=== PATIENT | male | born 1955 | race Caucasian/White ===

== ENCOUNTER → 2021-04-20 13:25 | Outpatient (CLI) | payer MEDICARE, OTHER, SELFPAY ==
[2021-04-20 16:13] LABS: COVID19 -Nasal RAPID Negative (Negative)
== END ==
PROVIDERS: Visit Provider Physician Assistant
DX: Z01.812 Encounter for preprocedural laboratory examination (principal); Z20.822 Contact with and (suspected) exposure to COVID-19
CPT/HCPCS: 87635; C9803

== ENCOUNTER → 2021-04-21 10:30 | Outpatient (CLI) | payer MEDICARE, OTHER, SELFPAY ==
--- NOTE | 2021-04-21 11:51 | PM.TREADMILL ---
Cardiac Stress Test Report Referral & Results Date Patient Seen: 04/21/21 Time Patient Seen: 11:51 Requesting provider: Domenic Jain Indication: Atherosclerotic heart disease Rest ECG: Sinus rhythm Procedure Note: Standard Jesus protocol; 10:26, 11.1 METS Very good exercise capacity, NIK -35% Normal hemodynamic response to exercise No chest pain or anginal symptoms Less than [address] downsloping in II, III, aVF No ectopy Impression: Normal exercise stress test Please note: Actual ECG tracings can be found in the PACS system.
--- NOTE | 2021-04-22 18:45 | DI.NM.S_ITS ---
DATE OF SERVICE: 04/21/2021 PROCEDURE: Exercise perfusion study. INDICATION: Occluded mid LAD with recent intervention of RCA and ramus, diabetes mellitus, hypertension and hyperlipidemia. RADIOPHARMACEUTICAL: 25.9 millicurie technetium-99m Myoview IV was injected at stress and 25.0 millicurie technetium-99m Myoview IV was injected at rest. CARDIAC STRESS: The patient underwent exercise perfusion study under the supervision of an attending staff. He walked on Jesus protocol for 10 minutes and 26 seconds, achieved 93 percent of target heart rate with normal blood pressure response, NIK -35 percent and 12.8 METs of workload. No anginal symptoms. The patient felt fatigue and some dyspnea. Baseline EKG revealed sinus rhythm. During stress, there were some nonspecific ST-T changes without any convincing ischemic changes. There were no significant arrhythmias. RAW DATA: There is gut shadow seen near the inferior border of the heart. The patient's weight is 215 pounds. GATED STUDY: Resting LV ejection fraction 69 and stress LV ejection 77 percent without any obvious wall motion abnormalities. Resting end-diastolic volume 106 mL. TID ratio 0.61, which is within normal limits. Lung/heart ratio 0.33, which is within normal limits. MYOCARDIAL PERFUSION SCAN: Stress supine and resting supine, as well as stress prone images were compared to each other. Resting supine images revealed moderate-size, moderate to severely decreased perfusion of inferior wall and inferoapex. During stress supine, there was a small size, mildly decreased perfusion of basal inferior wall and inferoapex. During stress prone, there was complete resolution of inferior wall defect. There was minimally decreased perfusion of inferoapex. No reversible ischemia. CONCLUSION: There is no reversible ischemia. Significant improvement of inferior wall defect during stress prone images. There is a minimally fixed inferopical defect, which could be due to persistent tissue attenuation artifact, however one cannot rule out small inferoapical infarction. Excellent exercise tolerance. The patient walked on Jesus protocol for 10 minutes and 26 seconds. Functional aerobic impairment -35 percent. Preserved left ventricular function. No obvious ischemic EKG changes or significant arrhythmias. Overall, this is a low-risk myocardial perfusion scan. Rip Chin - Laverne/elsa doc#: [id number]/job#: [id number] dd: 04/22/2021 17:16:00 dt: 04/22/2021 18:30:00 DICTATING MD/COPIES TO: Viral Braun MD COPIES MNE: SHAWN;
--- OUTSIDE RECORDS SUMMARY | 2021-06-04 08:21 | XMS_ITS | Referral Summary ---
:1955 Author Organization [facility] Address [address] [place] [address] Care Team Providers Name Role Phone Lori Primary Care Provider Reason for Referral Consultation (Routine) Status Reason Specialty Diagnoses / Referred By Referred To Procedures Contact Contact Closed Cardiac Rehabilitation Diagnoses ASHD (arteriosclerotic heart disease) [facility] [address] [place] [address] [phone] [place], [place] Phone: [phone] Electronically signed by Domenic Jain MD at Reason for Visit Reason Comments Heart Problem Coronary Artery Disease Encounter Details Date Type Department Care Team Description 12/03/2020 Telemedicine [facility] ASHD (hiro riosclerotic heart disease) (Primary Dx); [facility] Cardiology MD Simona History of heart artery stent; [address] Hyperlipidemia, unspecified hyperlipidemia type; [address] [place] [address] [address] Type 2 diabetes mellitus with other spec ified complication, without long-term current use of insulin ([facility]); [address] [place], [place] [phone] Allergies Active Allergy Reactions Severity Noted Date Comments Penicillin G 11/18/2020 Unknown, since he was a kid documented as of this encounter (statuses as of 06/03/2021) Medications Medication Sig Dispensed Refills Start Date End Date Status insulin glargine Inject 10 0 Act bob (LANTUS) 100 Units under unit/mL injection the skin daily (vial) metFORMIN Take 1,000 mg 0 Active (GLUCOPHAGE) by mouth 2 1,000 mg tablet (two) times a day with meals aspirin 81 mg Take 1 tablet 30 tablet 0 11/20/2020 A ctive chewable tablet (81 mg total) 2 by mouth daily Jardiance 10 mg Take 1 tablet 0 11/24/2020 Active tablet by mouth daily Trulicity 0.75 Inject 0.75 mg 0 11/09/2020 Active mg/0.5 mL pen into the injector shoulder, thigh, or buttocks once a week clopidogreL Take 1 tablet 90 tablet 3 12/03/2020 Act bob (PLAVIX) 75 mg (75 mg total) 2 tablet by mouth daily telmisartan Take 40 mg by 0 Disc ontinued (MICARDIS) 40 mg mouth daily 1 ( Stop Taking at tablet Discharge) carvediloL Take 1 tablet 60 tablet 0 11/19/2020 Expi red (COREG) 3.125 mg (3.125 mg 1 tablet total) by mouth 2 (two) times a day with meals clopidogreL Take 1 tablet 30 tablet 0 11/20/2020 Dis continued (PLAVIX) 75 mg (75 mg total) 1 ( Reorder) tablet by mouth daily documented as of this encounter (statuses as of 06/03/2021) Active Problems No known active problemsdocumented as of this encounter (statuses as of 06/03/2021) Social History Tobacco Use Types Packs/Day Years Used Date Former Smoker 1972 - 1982 Smokeless Tobacco: Never Used Sex Assigned at Date Recorded Male 03/02/2021 8:59 AM PDT Job Start Date Occupation Industry Not on file Not on file Not on file documented as of this encounter Last Filed Vital Signs Vital Sign Reading Time Taken Comments Blood Pressure 114/73 12/03/2020 10:28 AM PST Pulse 73 12/03/2020 10:28 AM PST Temperature - - Respiratory Rate - - Oxygen Saturation - - Inhaled Oxygen Concentration - - Weight 103 kg (226 lb) 12/03/2020 10:28 AM PST Height 185.4 cm (6' 1) 12/03/2020 10:28 AM PST Body Mass Index 29.82 12/03/2020 10:28 AM PST documented in this encounter Progress Notes Domenic Jain MD - 12/03/2020 10:40 AM PST Subjective Patient ID: Rip Chin is a 65 y.o. male that presents today for had concerns including Heart Problem and Coronary Artery Disease. HPI: 65 yo M h/o CAD here for F/U on his CAD. Patient is seen via two way zoom video. Since his hospitalization for NM last month, he has done well. Denies chest pain, dyspnea, heart racing sensations, lightheadedness, or syncope. He is back to his baseline and is walking his dog without any symptoms. He is working with his PCP on his diabetes. PROBLEM LIST: # CAD STEMI s/p emergent HUDSON to RCA on 11/18/2020. LVEF normal. # DM # Severe hypertriglyceridemia related to poorly controlled diabetes. # Former smoker: Social History Socioeconomic History ??? Marital status: Unknown Spouse name: Not on file ??? Number of children: Not on file ??? Years of education: Not on file ??? Highest education level: Not on file Occupational History ??? Not on file Social Needs ??? Financial resource strain: Not on file ??? Food insecurity Worry: Not on file Inability: Not on file ??? Transportation needs Medical: Not on file Non-medical: Not on file Tobacco Use ??? Smoking status: Former Smoker Start date: 1972 Quit date: 1982 Years since quittin.1 ??? Smokeless tobacco: Never Used Substance and Sexual Activity ??? Alcohol use: Not on file ??? Drug use: Not on file ??? Sexual activity: Not on file Lifestyle ??? Physical activity Days per week: Not on file Minutes per session: Not on file ??? Stress: Not on file Relationships ??? Social connections Talks on phone: Not on file Gets together: Not on file Attends denominational service: Not on file Active member of club or organization: Not on file Attends meetings of clubs or organizations: Not on file Relationship status: Not on file Other Topics Concern ??? Not on file Social History Narrative ??? Not on file Allergies Allergen Reactions ??? Penicillin G Unknown, since he was a kid Current Medication List Sig aspirin 81 mg chewable tablet Take 1 tablet (81 mg total) by mouth daily carvediloL (COREG) 3.125 mg tablet Take 1 tablet (3.125 mg total) by mouth 2 (two) times a day withmeals clopidogreL (PLAVIX) 75 mg tablet Take 1 tablet (75 mg total) by mouth daily insulin glargine (LANTUS) 100 unit/mL injection (vial) Inject 10 Units under the skin daily Jardiance 10 mg tablet Take 1 tablet by mouth daily metFORMIN (GLUCOPHAGE) 1,000 mg tablet Take 1,000 mg by mouth 2 (two) times a day with meals telmisartan (MICARDIS) 40 mg tablet Take 40 mg by mouth daily Trulicity 0.75 mg/0.5 mL pen injector Inject 0.75 mg into the shoulder, thigh, or buttocks once a week clopidogreL (PLAVIX) 75 mg tablet (Discontinued) Take 1 tablet (75 mg total) by mouth daily Review of Systems Constitutional: Positive for unexpected weight change. Negative for fatigue. Eyes: Negative for visual disturbance. Respiratory: Negative for chest tightness and shortness of breath. Cardiovascular: Negative for chest pain, palpitations and leg swelling. Gastrointestinal: Negative for blood in stool. Endocrine: Negative for polydipsia. Genitourinary: Negative for hematuria. Skin: Negative for rash. Neurological: Negative for dizziness, weakness and light-headedness. Hematological: Does not bruise/bleed easily. Psychiatric/Behavioral: The patient is not nervous/anxious. All other systems reviewed and are negative. Objective BP 114/73 (BP Location: Left arm, Patient Position: Sitting) Pulse 73 Ht 1.854 m Wt 103 kg BMI 29.82 kg/m?? Physical Exam: COPIED FROM LAST PHYSICAL EXAM DONE IN CLINIC AND UNCHANGED (BUT AUSCULTATION COULD NOT BE DONE TODAY) General appearance: No apparent distress, well-nourished, pleasant, cooperative HEET: Normocephalic atraumatic, no scleral icterus, tongue midline, mucous membranes moist Neck: supple Cardiovascular: RRR, normal S1 and normal S2, no murmurs/ rubs/gallops, PMI nondisplaced, no JVD, noperipheral edema Respiratory: Good aeration, CTAB Abdomen: Soft, nontender, nondistended, + bowel sounds Neuro: Alert, no facial droop, tongue midline, no gross motor deficits Psych: appropriate affect Skin: no rashes on face, neck, and lower extremities Cath 11/18/2020: HUDSON to mRCA ?? Echo 11/18/2020: Normal sinus rhythm with wide QRS complexes. Normal LV size and wall thickness; normal wall motion and LV systolic function. EF is 65-70%. Normal chamber sizes. No significant valvular abnormalities. No prior study available for comparison. Assessment/Plan Comments: 1. ASHD (arteriosclerotic heart disease) XTRNL Referral to Cardiac Rehabilitation, Basic metabolic panel, Complete blood count 2. History of heart artery stent XTRNL Referral to Cardiac Rehabilitation 3. Hyperlipidemia, unspecified hyperlipidemia type Lipid panel 4. Type 2 diabetes mellitus with other specified complication, without long-term current use of insulin ([facility]) Hemoglobin A1c 5. Essential hypertension # CAD STEMI s/p emergent HUDSON to RCA on 11/18/2020. LVEF normal. No symptoms since stent placement. Plan: - Continue aspirin 81mg daily - Continue clopidogrel 75mg daily for one year (stop date 11/18/2021) - Continue carvedilol 3.125mg bid - Continue telmisartan 40mg daily - Referral to [facility] cardiac rehab ?? # Severe hypertriglyceridemia related to poorly controlled diabetes. - Defer to PCP for DM management - Consider jardiance as outpatient ?? # Former smoker: congratulated on smoking cessation ?? F/U in 4 months with labs (as VV). Electronically signed by Domenic Jain MD 12/03/2020 11:02 AM documented in this encounter Plan of Treatment Scheduled Orders Name Type Priority Associated Diagnoses Order S chedule Basic metabolic panel Lab Routine ASHD (arteriosclero tic heart Expected: 03/02/2021, disease) Expires: 2021 Complete blood count Lab Routine ASHD (arteriosclerot ic heart Expected: 03/02/2021, disease) Expires: 2021 Hemoglobin A1c Lab Routine Type 2 diabetes mellitus E xpected: 03/02/2021, with other specified Expires : 12/03/2024 complication, without long-term current use of insulin ([facility]) Lipid panel Lab Routine Hyperlipidemia, unspecified Expected: 03/02/2021, hyperlipidemia type Expires: 06/02/2022 Scheduled Referrals Name Type Priority Associated Order Schedule Diagnoses XTRNL Referral to Outpatient Referral Routine ASHD Ord ered: Cardiac Rehabilitation (arteriosclerotic 12/03/2020 heart disease) History of heart artery stent documented as of this encounter Implants Implanted Type Area Director Of Psychology Device Identifier Shelf Exp iration Model / Date Serial / L ot Stent Xience Mai 4.0*15 - [id number] [id number] / Implanted: Qty: 1 on 11/18/2020 at [facility] / [id number] documented as of this encounter Visit Diagnoses Diagnosis ASHD (arteriosclerotic heart disease) - Primary Coronary atherosclerosis of unspecified type of vessel, nenana or graft History of heart artery stent Hyperlipidemia, unspecified hyperlipidem ia type Type 2 diabetes mellitus with other spec ified complication, without long-term current use of insulin ([facility]) Essential hypertension Unspecified essential hypertension documented in this encounter Insurance Payer Benefit Plan / Subscriber ID Effective Phone Address T ype Group Dates MEDICARE MEDICARE PART A AND [id number] 2018-Prese B nt SUPP FOR LIFE [id number] 2019-Prese SUPP nt [employer] [id number] 1998-Pre ADMINISTRATION ADMINISTRATION sent [facility] [id number] 1998-Pre ADMINISTRATION sent documented as of this encounter Advance Directives Documents on File Type Date Recorded 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
== END ==
PROVIDERS: PCP Family Medicine; Referring Provider Internal Medicine Cardiovascular Disease; Visit Provider Internal Medicine Cardiovascular Disease
DX: I25.10 Atherosclerotic heart disease of native coronary artery without angina pectoris (principal); E11.9 Type 2 diabetes mellitus without complications; I10 Essential (primary) hypertension; E78.5 Hyperlipidemia, unspecified; Z95.5 Presence of coronary angioplasty implant and graft
CPT/HCPCS: 78452; 93017; A9502